=== PATIENT | male | born 1985 | race Caucasian/White ===

== ENCOUNTER 2018-01-07 11:07 | Emergency (ER) | payer OTHER ==
[~2018-01-07] VITALS: Ht 182.9 cm; Wt 74.8 kg
[~2018-01-07 11:07] MED LIST: BUPROPION; CARISOPRODOL 3350 MG PO; HUMALOG100 UNIT/1 SQ; HUMALOG100 UNIT/1 SUBQ; LANTUS SC; LEVEMIR SUBQ; NEURONTIN; NORCO 5-325 TA1 EACH PO; PENICILLIN VK500 M1 PO; ULTRAM 50MG TAB50 MG PO; VICODIN
[2018-01-07 11:28] VITALS: BP 99/60
[2018-01-07] MEDS ORDERED: NOVOLIN R100 UNIT/1 SUBQ (11:28)
[2018-01-07 11:55] LABS: ABSOLUTE BASOPHILS 0.3 thou/uL (0.0-0.2); ABSOLUTE EOSINOPHILS 0.3 thou/uL (0.0-0.7); ABSOLUTE LYMPHOCYTES 1.6 thou/uL (0.8-5.3); ABSOLUTE MONOCYTES 0.6 thou/uL (0.0-1.2); ABSOLUTE NEUTROPHILS 8.7 thou/uL (1.6-8.1); BASOPHILS 2.7 %; EOSINOPHILS 2.8 %; HEMATOCRIT 28.4 % (42.0-52.0); MCH 26.3 pg (26.0-34.0); MCHC 31.8 g/dL (28.0-37.0); MCV 82.8 fL (80.0-100.0); MONOCYTES 5.2 %; NUCLEATED RBCS 0 /100WBC; PLATELET COUNT* 506 thou/uL (150-400); POLYS 75.3 %; RBC 3.43 mil/uL (4.50-6.00); RDW-CV 17.2 % (10.5-14.5); WBC 11.6 thou/uL (4.0-11.0)
[2018-01-07 12:07] LABS: APTT 30.6 Seconds (25.0-31.3); PROTIME 10.2 Seconds (9.20-11.50)
[2018-01-07 12:13] LABS: CALCIUM 9.6 mg/dL (8.5-10.1); CREATININE 1.5 mg/dL (0.6-1.3); POTASSIUM 5.1 mmol/L (3.5-5.1)
[2018-01-07 12:18] LABS: ALBUMIN 2.2 g/dL (3.4-5.0); TOTAL BILIRUBIN 0.2 mg/dL (<0.1-1.0); TOTAL PROTEIN 9.7 g/dL (6.4-8.2)
[2018-01-07] MEDS ORDERED: NOVOLIN N100 UNIT/1 SUBQ (14:10)
[2018-01-07 15:25] VITALS: BP 140/80
[2018-01-10 03:08] LABS: GLYCOHEMOGLOBIN (HGB A1C) 9.6 % (4.8-5.6)
== END 2018-01-07 15:44 | disposition still patient (30) ==
LOC: M.ERS 11:07 → M.TBA-ER 13:02
PROVIDERS: Family Medicine; Internal Medicine
DX: E08.621 Diabetes mellitus due to underlying condition with foot ulcer (principal); L97.411 Non-pressure chronic ulcer of right heel and midfoot limited to breakdown of skin; M86.9 Osteomyelitis, unspecified; F17.210 Nicotine dependence, cigarettes, uncomplicated; Z79.4 Long term (current) use of insulin

== ENCOUNTER 2018-07-03 14:42 | Emergency (ER) | payer OTHER ==
[~2018-07-03] VITALS: Ht 180.3 cm; Wt 80.7 kg
[~2018-07-03 14:42] MED LIST changes: +NOVOLIN N100 UNIT/1 SUBQ; +NOVOLIN R100 UNIT/1 SUBQ
[2018-07-03] MEDS ORDERED: HUMALOG100 UNIT/1 SUBQ ×2 (14:46→18:43)
[2018-07-03] MEDS ORDERED: LANTUS100 UNIT/M SUBQ (14:47)
[2018-07-03 15:22] LABS: URINE BILIRUBIN NEGATIVE (Negative); URINE BLOOD 3+ (Negative); URINE CLARITY CLEAR; URINE COLOR YELLOW; URINE GLUCOSE-RANDOM 3+ (Negative); URINE KETONES NEGATIVE (Negative); URINE LEUKOCYTES-REFLEX NEGATIVE (Negative); URINE NITRITE-REFLEX NEGATIVE (Negative); URINE PROTEIN 3+ (Negative); URINE SPECIFIC GRAVITY 1.025 (1.005-1.030); URINE UROBILINOGEN 0.2 E.U./dl (0.2-1.0)
[2018-07-03 15:29] LABS: BACTERIA-REFLEX 1-9 Few /HPF (None Seen); CASTS None Seen /LPF (None Seen); CRYSTALS None Seen /LPF (None Seen); SQUAMOUS 0-3 Few /LPF (0-3); URINE RBC 0-2 Rare /HPF (0-2); URINE WBC-REFLEX 0-5 Rare /HPF (0-5)
[2018-07-03 15:32] LABS: BE 1.5 mmol/L (-2 to +3); PO2 95.1 mmHg (75.0-100.0); pH 7.445 (7.340-7.450)
[2018-07-03 15:34] LABS: ABSOLUTE BASOPHILS 0.1 thou/uL (0.0-0.2); ABSOLUTE EOSINOPHILS 0.4 thou/uL (0.0-0.7); ABSOLUTE LYMPHOCYTES 1.8 thou/uL (0.8-5.3); ABSOLUTE MONOCYTES 0.5 thou/uL (0.0-1.2); ABSOLUTE NEUTROPHILS 5.6 thou/uL (1.6-8.1); BASOPHILS 0.9 %; EOSINOPHILS 4.5 %; HEMATOCRIT 30.5 % (42.0-52.0); HEMOGLOBIN 10.2 gm/dL (14.0-18.0); LYMPHOCYTES 21.2 %; MCH 28.6 pg (26.0-34.0); MCHC 33.4 g/dL (28.0-37.0); MCV 85.6 fL (80.0-100.0); MONOCYTES 5.9 %; MPV 8.4 fl. (7.2-11.1); NUCLEATED RBCS 0 /100WBC; PLATELET COUNT* 304 thou/uL (150-400); POLYS 67.5 %; RBC 3.56 mil/uL (4.50-6.00); RDW-CV 14.6 % (10.5-14.5); WBC 8.3 thou/uL (4.0-11.0)
[2018-07-03 15:54] LABS: CALCIUM 8.9 mg/dL (8.5-10.1); CREATININE 1.2 mg/dL (0.6-1.3); POTASSIUM 4.9 mmol/L (3.5-5.1); TOTAL BILIRUBIN 0.2 mg/dL (<0.1-1.0); TOTAL PROTEIN 6.7 g/dL (6.4-8.2)
[2018-07-03 16:00] LABS: AMP/METHAMP Negative (Negative); BARBITURATES Negative (Negative); BENZODIAZEPINES Negative (Negative); COCAINE Negative (Negative); METHADONE Negative (Negative); OPIATES Negative (Negative); PCP Negative (Negative); THC Negative (Negative)
--- NOTE | 2018-07-03 16:46 | EKG ---
[place] [address] ELECTROCARDIOGRAM REPORT Name: TEA RODRIGUEZ Room: [facility]#: [id number] Admission: 07/03/18 Attend Phys: Discharge: Date of : 89 Report #: [id number] THIS REPORT FOR: //name// [facility] ED Test Date: 2018-07-03 Test Time: 15:00:55 Pat Name: TEA RODRIGUEZ Department: Room: Gender: M Tare Weigher: KEEGAN : 1985 Requested By: Deborah Li Order Number: [id number] MD: Gutierrez Bella Measurements Intervals [place] Rate: 89 P: 73 TN: 135 QRS: 70 QRSD: 84 T: 63 QT: 348 QTc: 424 Interpretive Statements Sinus rhythm ST elev, probable normal early repol pattern Compared to ECG 08/29/2015 10:21:43 Sinus tachycardia no longer present Electronically Signed On 07-03-2018 16:46:19 CDT by Gutierrez Bella [email or web address] <ELECTRONICALLY SIGNED> By: Gutierrez Bella MD, [facility] 07/03/18 1646 1500 1500 Gutierrez Bella MD, FACC /EPI
[2018-07-03] MEDS ORDERED: LANTUS SUBQ (18:43)
[2018-07-03 19:59] VITALS: BP 126/70
== END 2018-07-03 19:47 ==
LOC: M.ERS 14:42
PROVIDERS: Personal Emergency Response Attendant
DX: E10.65 Type 1 diabetes mellitus with hyperglycemia (principal); I10 Essential (primary) hypertension; F17.210 Nicotine dependence, cigarettes, uncomplicated

== ENCOUNTER 2018-07-05 09:10 | Emergency (ER) | payer OTHER ==
[~2018-07-05] VITALS: Ht 180.3 cm; Wt 77.1 kg
[~2018-07-05 09:10] MED LIST changes: +LANTUS SUBQ; +LANTUS100 UNIT/M SUBQ
[2018-07-05] MEDS ORDERED: HUMALOG100 UNIT/1 SUBQ (09:23)
[2018-07-05] MEDS ORDERED: UNKNOWN BP MED PO (09:24)
[2018-07-05] MEDS ORDERED: VICODIN HP 10-1 EAC1 PO (09:24)
[2018-07-05 09:41] LABS: ABSOLUTE BASOPHILS 0.1 thou/uL (0.0-0.2); ABSOLUTE EOSINOPHILS 0.4 thou/uL (0.0-0.7); ABSOLUTE LYMPHOCYTES 1.7 thou/uL (0.8-5.3); ABSOLUTE MONOCYTES 0.3 thou/uL (0.0-1.2); ABSOLUTE NEUTROPHILS 3.5 thou/uL (1.6-8.1); BASOPHILS 1.5 %; EOSINOPHILS 5.9 %; HEMATOCRIT 33.7 % (42.0-52.0); HEMOGLOBIN 11.2 gm/dL (14.0-18.0); LYMPHOCYTES 28.7 %; MCH 28.5 pg (26.0-34.0); MCHC 33.3 g/dL (28.0-37.0); MCV 85.4 fL (80.0-100.0); MONOCYTES 5.5 %; MPV 7.8 fl. (7.2-11.1); NUCLEATED RBCS 0 /100WBC; PLATELET COUNT* 290 thou/uL (150-400); POLYS 58.4 %; RBC 3.95 mil/uL (4.50-6.00); RDW-CV 14.6 % (10.5-14.5)
[2018-07-05 09:50] LABS: CALCIUM 8.6 mg/dL (8.5-10.1); CREATININE 1.3 mg/dL (0.6-1.3); POTASSIUM 4.9 mmol/L (3.5-5.1)
[2018-07-05 11:26] VITALS: BP 138/85
== END 2018-07-05 11:26 | disposition home or self-care (01) ==
LOC: M.ERS 09:10
PROVIDERS: Personal Emergency Response Attendant
DX: E10.65 Type 1 diabetes mellitus with hyperglycemia (principal); F17.210 Nicotine dependence, cigarettes, uncomplicated; I10 Essential (primary) hypertension